=== PATIENT | female | born 1975 | race Caucasian/White ===

== ENCOUNTER 2024-01-05 10:57 | Emergency (ER) | payer SELFPAY ==
[~2024-01-05] VITALS: Ht 157.5 cm; Wt 82.0 kg
[2024-01-05 11:26] VITALS: O2SAT 99
[2024-01-05 11:31] VITALS: BP 152/74; PULSE 72; RESP 16; TEMP 98.5; O2SAT 100
[2024-01-05] MEDS: MECLIZINE 25MG TABLET PO ONE (12:00)
[2024-01-05 12:06] LABS: BASOPHILS % 0.9 % (0.0-2.0); EOSINOPHILS % 0.6 % (0.0-5.0); HEMATOCRIT. 40.7 % (36.0-48.0); LYMPHOCYTES % 23.9 % (20.0-50.0); MEAN CORPUSCULAR HGB CONC 34.4 g/dL (31.0-37.0); MEAN CORPUSCULAR VOLUME 92.9 fL (81.0-99.0); MONOCYTES % 5.7 % (2.0-8.0); NEUTROPHILS % 68.9 % (40.0-76.0); PLATELET 194 x1000/uL (130-400); RED BLOOD CELL COUNT 4.38 mill/uL (4.2-5.4); RED CELL DISTRIBUTION WIDTH 13.2 % (11.6-14.6); WHITE BLOOD COUNT 7.2 x1000/uL (4.5-11.0)
[2024-01-05 12:10] LABS: POTASSIUM 4.1 mEq/L (3.5-5.1)
[2024-01-05 12:11] LABS: CALCIUM 9.6 mg/dL (8.7-10.4)
[2024-01-05] MEDS ORDERED: HYDR15CR41 TP (14:06)
[2024-01-05 15:00] LABS: HCG SCREEN NEGATIVE
[2024-01-05] MEDS ORDERED: MECL-115 PO (15:04)
== END 2024-01-05 15:24 | disposition home or self-care (01) ==
LOC: ER 10:57
DX: R42 Dizziness and giddiness (principal); I10 Essential (primary) hypertension
CPT/HCPCS: 99284; 80048; 84703; 85025; 36415; 93005; J8597